=== PATIENT | female | born 1990 | race Caucasian/White ===

== ENCOUNTER 2017-03-18 21:41 | Emergency (ER) | payer MEDICAID ==
[2013-07-15 06:11] VITALS: BMI 20.1
[~2017-03-18 21:41] MED LIST: KLONOPIN1 MG PO; NORCO 5/325 TAB1 TA1 PO; PROZAC40 MG PO; [UNRECOGNIZED DRUG - OTHER] PO
== END 2017-03-19 00:29 | disposition home or self-care (01) ==
LOC: D.ER 21:41
DX: T18.128A Food in esophagus causing other injury, initial encounter (principal); X58.XXXA Exposure to other specified factors, initial encounter; Y93.89 Activity, other specified; Y92.89 Other specified places as the place of occurrence of the external cause

== ENCOUNTER 2017-11-09 07:28 | Emergency (ER) | payer MEDICAID ==
[2013-07-15 06:11] VITALS: BMI 20.1
== END 2017-11-09 08:05 | disposition home or self-care (01) ==
LOC: D.ER 07:28
DX: H66.91 Otitis media, unspecified, right ear (principal)